=== PATIENT | male | born 2000 | race African-American/Black ===

== ENCOUNTER → 2020-01-30 | Outpatient (CLI) | payer OTHER | LOC: BHSO 08:52 | DX: F33.0 Major depressive disorder, recurrent, mild (principal) ==

== ENCOUNTER → 2020-02-17 | Outpatient (CLI) | payer OTHER | LOC: BHSO 12:57 | DX: F33.0 Major depressive disorder, recurrent, mild (principal) ==

== ENCOUNTER → 2020-02-27 | Outpatient (CLI) | payer OTHER | LOC: BHSO 13:46 | DX: F33.0 Major depressive disorder, recurrent, mild (principal) ==